=== PATIENT | female | born 1965 | race American Indian/Alaskan Native ===

== ENCOUNTER 2017-03-29 09:40 | Outpatient (CLI) | payer OTHER ==
--- NOTE | 2017-03-29 10:26 | XRay Report ---
RIGHT HAND, 2 views: History: Rheumatoid arthritis. The bony architecture is intact. Bony alignment is normal. No soft tissue abnormalities are seen. The joint spaces appear preserved. IMPRESSION: Normal right hand.
--- NOTE | 2017-03-29 10:30 | XRay Report ---
RIGHT KNEE, 3 views: History: Osteoarthritis in right knee. There is moderate to severe tricompartmental osteoarthritic changes. No acute bony findings. Small joint effusion. IMPRESSION: Osteoarthritis. Small joint effusion.
== END 2017-03-29 09:41 | disposition home or self-care (01) ==
LOC: XRAY 09:40
PROVIDERS: ATTEND Internal Medicine
DX: M17.11 Unilateral primary osteoarthritis, right knee (principal); M06.841 Other specified rheumatoid arthritis, right hand; F32.9 Major depressive disorder, single episode, unspecified; G43.909 Migraine, unspecified, not intractable, without status migrainosus